=== PATIENT | female | born 1975 | race Caucasian/White ===

== ENCOUNTER 2024-12-06 18:17 | Observation (INO) | payer BC, SELFPAY ==
[2024-12-06 12:37] VITALS: BP 146/87
[2024-12-06 12:56] LABS: Hematocrit 36.2 % (37.0-47.0); Hemoglobin 11.7 g/dL (12.0-16.0); Mean Corp Hgb Conc. 32.3 g/dL (33.0-37.0); Mean Corpuscular Volume 84.6 fL (81.0-99.0); Nucleated Red Blood Cells % 0 %; Platelet Count 414 10^3/uL (130-400); Red Cell Dist. Width 15.9 % (11.5-14.5)
[2024-12-06 13:13] LABS: Urine Character Clear (Clear)
[2024-12-06 13:17] LABS: ALT (SGPT) 167 U/L (0-35); AST (SGOT) 97 U/L (14-36); Albumin 3.9 g/dl (3.5-5.0); Alkaline Phosphatase 153 U/L (38-126); Blood Urea Nitrogen 7 mg/dl (7-17); Calcium 9.0 mg/dl (8.4-10.2); Carbon Dioxide 22 mmol/L (22-30); Chloride 104 mmol/L (98-107); Glucose 133 mg/dl (70-99); Potassium 3.0 mmol/L (3.5-5.1); Sodium 134 mmol/L (135-145); Total Protein 7.6 g/dl (6.3-8.2); eGFR > 60.00
[2024-12-06 14:28] LABS: Urine Squamous Cell 16-20 /LPF (Few)
[2024-12-06 14:29] LABS: Urine Red Blood Cell 0-2 /HPF (0-2)
[2024-12-06 14:36] LABS: Lipase 60 U/L (23-300)
--- NOTE | 2024-12-06 16:14 | ED.GENMED ---
History of Present Illness
<Mathew Terry PA-C - Last Filed: 12/06/24 17:36>
General
Chief Complaint: Fever
Source: patient
Exam Limitations: none
Time Seen by Provider: 12/06/24 15:55
History of Present Illness
History of Present Illness:
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 This was started 3 days after receiving the shingles vaccine. She notes an occasional headache. She denies sore throat or neck pain. No
vomiting but decreased appetite. She denies abdominal pain. She notes urinary frequency but she did also notes that she has been drinking lots of water. She takes sertraline and omeprazole. No known tick exposure. No rash. Seen initially at
the urgent care was found to have a temperature there at 100.7 and an elevated white blood cell count and sent here to rule out sepsis.
Phy Exam
<Mathew Terry PA-C - Last Filed: 12/06/24 17:36>
Physical Exam
Physical Exam:
General: Well-appearing female no acute respiratory distress
HEENT normal cephalic atraumatic posterior pharynx patent neck is supple no adenopathy no erythema or exudate in the posterior pharynx. TMs normal
Heart: Tachycardic but regular
Lungs: Clear no wheeze
Abdomen is soft nontender negative Tucker sign no guarding or rebound
Extremities: No cyanosis or edema
Neurologic exam: No nuchal rigidity or no meningeal signs alert and oriented
Skin is warm no rash
Course
<Mathew Terry PA-C - Last Filed: 12/06/24 17:36>
Orders/Labs/Results
Orders:
Orders
12/06/24 12:36
Urinalysis Reflex To Culture Urgent
Date Specimen was Collected: 12/06/24
Time Specimen was Collected: 12:31
Urine Microscopic Reflex Cult Urgent
Urine Culture Urgent
NOHEMI Source: U
Specimen Description:
Date Specimen was Collected: 12/06/24
Time Specimen was Collected: 12:31
12/06/24 12:46
Complete Blood Count/With Diff Urgent
Comprehensive Metabolic Panel Urgent
Creatine Phosphokinase Urgent
Comment: ADD ON
Lactic Acid Urgent
Lipase Urgent
Comment: ADD ON
Lyme Progressive Urgent
Comment: ADD ON
Monotest Urgent
Comment: ADD ON
Blood Culture Urgent
NOHEMI Source: Blood/Venous
Specimen Description:
12/06/24 13:55
Add On- LAB Urgent
Tests Added?: lipase
12/06/24 16:12
0.9% Sodium Chloride 1000 ml [Nss] 1,000 ml IV BOLUS
Potassium Chloride [KCl] 40 meq PO NOW STA
12/06/24 16:13
Add On- LAB Urgent
Tests Added?: cpk, monotest, lyme progressive
CR Chest - 2 Views Urgent
Comment:
Reason For Exam: fever
12/06/24 16:28
Blood Culture Urgent
NOHEMI Source: Blood/Venous
Specimen Description:
12/06/24 17:21
Urinalysis Reflex To Culture Urgent
Date Specimen was Collected: 12/06/24
Time Specimen was Collected: 17:20
Urine Microscopic Reflex Cult Urgent
Urine Culture Urgent
NOHEMI Source: U
Specimen Description:
Date Specimen was Collected: 12/06/24
Time Specimen was Collected: 17:20
12/06/24 17:34
Add On- LAB Urgent
Tests Added?: hepaitis profile
12/06/24 18:00
US Abdomen Complete/Upper Urgent
Comment:
Reason For Exam: sirs, transamintis
12/06/24 18:01
Admit/Transfer Patient As Directed
Co-Sign Provider:
Level of Care: Observation services
Assign to:: Medical/Surgical
Physician / Group: yeison
Diagnosis: sirs, myalgias
12/06/24 18:02
Code Status As Directed
Resuscitation Status: Full Code
PRN Pain Medication Management As Directed
May give lesser potent ordered pain med per pt: Yes
preference::
Protocol:: Medication orders for pain may be administered in a
manner that supports deferring to patient preference
when the pt is:
- Requesting an ordered lesser potent pain medication.
Least to most potent pain medications are defined
as: acetaminophen < NSAID < tramadol < opioids
(morphine, oxycodone, hydromorphone).
- Requesting a lesser dose of the same medication IF
ORDERED.
- Requesting a less intrusive route of administration
if both routes are prescribed by the provider (PO <
IV).
12/06/24 18:15
COVID-19 Antigen Urgent
Source: Nasal Swab
Hepatitis A Antibody, Total Urgent
Hepatitis A IgM Antibody Urgent
Hepatitis B Core Ab, IgM Urgent
Hepatitis B Core Ab, Total Urgent
Hepatitis B Surface Antibody Urgent
Hepatitis B Surface Antigen Urgent
Hepatitis C Antibody Urgent
Influenza A+B Rapid Molecular Urgent
NOHEMI Source: Nasal Swab
Specimen Description:
Abnormal Lab Results
12/06/24 12/06/24 12/06/24
12:36 12:46 17:21
WBC 15.4 H 10^3/uL
(4.8-10.8)
Hgb 11.7 L g/dL
(12.0-16.0)
Hct 36.2 L %
(37.0-47.0)
MCHC 32.3 L g/dL
(33.0-37.0)
RDW 15.9 H %
(11.5-14.5)
Plt Count 414 H 10^3/uL
(130-400)
Abs Immat Gran (auto) 0.1 H 10^3/uL
(0-0.05)
Absolute Neuts (auto) 13.4 H 10^3/uL
(1.4-6.5)
Absolute Lymphs (auto) 1.0 L 10^3/uL
(1.2-3.4)
Absolute Monos (auto) 0.9 H 10^3/uL
(0.1-0.6)
Immature Gran % 0.6 H %
(0-0.5)
Neutrophils % 86.9 H %
(42.2-75.2)
Lymphocytes % 6.3 L %
(20.5-51.1)
Sodium 134 L mmol/L
(135-145)
Potassium 3.0 L mmol/L
(3.5-5.1)
Glucose 133 H mg/dl
(70-99)
AST 97 H U/L
(14-36)
ALT 167 H U/L
(0-35)
Alkaline Phosphatase 153 H U/L
(38-126)
Urine Ketones 1+ A
(Negative)
Ur Occult Blood Reflex 2+ A
(Negative)
Leukocyte Esterase Rfl 1+ A
(Negative)
Urine RBC 3-6 A /HPF
(0-2)
Urine WBC (Reflex) 26-30 A /HPF
(0-5)
Urine Bacteria (Reflex) Moderate A Many A
(Negative) (Negative)
Urine Albumin (Reflex) 1+ A 1+ A
(Neg - Trace) (Neg - Trace)
12/06/24 12:46
12/06/24 12:46
Vital Signs
Initial and Last Documented VS:
Initial Vital Signs
Temp Pulse Resp BP Pulse Ox
36.9 C 114 16 146/87 100
12/06/24 12:37 12/06/24 12:37 12/06/24 12:37 12/06/24 12:37 12/06/24 12:37
Last Documented Vital Signs
Temp Pulse Resp BP Pulse Ox
36.9 C 95 16 119/75 100
12/06/24 16:00 12/06/24 17:00 12/06/24 12:37 12/06/24 17:00 12/06/24 16:17
<Last López, DO - Last Filed: 12/06/24 18:32>
Orders/Labs/Results
Orders:
Orders
12/06/24 12:36
Urinalysis Reflex To Culture Urgent
Date Specimen was Collected: 12/06/24
Time Specimen was Collected: 12:31
Urine Microscopic Reflex Cult Urgent
Urine Culture Urgent
NOHEMI Source: U
Specimen Description:
Date Specimen was Collected: 12/06/24
Time Specimen was Collected: 12:31
12/06/24 12:46
Complete Blood Count/With Diff Urgent
Comprehensive Metabolic Panel Urgent
Creatine Phosphokinase Urgent
Comment: ADD ON
Lactic Acid Urgent
Lipase Urgent
Comment: ADD ON
Lyme Progressive Urgent
Comment: ADD ON
Monotest Urgent
Comment: ADD ON
Blood Culture Urgent
NOHEMI Source: Blood/Venous
Specimen Description:
12/06/24 13:55
Add On- LAB Urgent
Tests Added?: lipase
12/06/24 16:12
0.9% Sodium Chloride 1000 ml [Nss] 1,000 ml IV BOLUS
Potassium Chloride [KCl] 40 meq PO NOW STA
12/06/24 16:13
Add On- LAB Urgent
Tests Added?: cpk, monotest, lyme progressive
CR Chest - 2 Views Urgent
Comment:
Reason For Exam: fever
12/06/24 16:28
Blood Culture Urgent
NOHEMI Source: Blood/Venous
Specimen Description:
12/06/24 17:21
Urinalysis Reflex To Culture Urgent
Date Specimen was Collected: 12/06/24
Time Specimen was Collected: 17:20
Urine Microscopic Reflex Cult Urgent
Urine Culture Urgent
NOHEMI Source: U
Specimen Description:
Date Specimen was Collected: 12/06/24
Time Specimen was Collected: 17:20
12/06/24 17:34
Add On- LAB Urgent
Tests Added?: hepaitis profile
12/06/24 18:00
US Abdomen Complete/Upper Urgent
Comment:
Reason For Exam: sirs, transamintis
12/06/24 18:01
Admit/Transfer Patient As Directed
Co-Sign Provider:
Level of Care: Observation services
Assign to:: Medical/Surgical
Physician / Group: yeison
Diagnosis: sirs, myalgias
12/06/24 18:02
Code Status As Directed
Resuscitation Status: Full Code
PRN Pain Medication Management As Directed
May give lesser potent ordered pain med per pt: Yes
preference::
Protocol:: Medication orders for pain may be administered in a
manner that supports deferring to patient preference
when the pt is:
- Requesting an ordered lesser potent pain medication.
Least to most potent pain medications are defined
as: acetaminophen < NSAID < tramadol < opioids
(morphine, oxycodone, hydromorphone).
- Requesting a lesser dose of the same medication IF
ORDERED.
- Requesting a less intrusive route of administration
if both routes are prescribed by the provider (PO <
IV).
12/06/24 18:15
COVID-19 Antigen Urgent
Source: Nasal Swab
Hepatitis A Antibody, Total Urgent
Hepatitis A IgM Antibody Urgent
Hepatitis B Core Ab, IgM Urgent
Hepatitis B Core Ab, Total Urgent
Hepatitis B Surface Antibody Urgent
Hepatitis B Surface Antigen Urgent
Hepatitis C Antibody Urgent
Influenza A+B Rapid Molecular Urgent
NOHEMI Source: Nasal Swab
Specimen Description:
Abnormal Lab Results
12/06/24 12/06/24 12/06/24
12:36 12:46 17:21
WBC 15.4 H 10^3/uL
(4.8-10.8)
Hgb 11.7 L g/dL
(12.0-16.0)
Hct 36.2 L %
(37.0-47.0)
MCHC 32.3 L g/dL
(33.0-37.0)
RDW 15.9 H %
(11.5-14.5)
Plt Count 414 H 10^3/uL
(130-400)
Abs Immat Gran (auto) 0.1 H 10^3/uL
(0-0.05)
Absolute Neuts (auto) 13.4 H 10^3/uL
(1.4-6.5)
Absolute Lymphs (auto) 1.0 L 10^3/uL
(1.2-3.4)
Absolute Monos (auto) 0.9 H 10^3/uL
(0.1-0.6)
Immature Gran % 0.6 H %
(0-0.5)
Neutrophils % 86.9 H %
(42.2-75.2)
Lymphocytes % 6.3 L %
(20.5-51.1)
Sodium 134 L mmol/L
(135-145)
Potassium 3.0 L mmol/L
(3.5-5.1)
Glucose 133 H mg/dl
(70-99)
AST 97 H U/L
(14-36)
ALT 167 H U/L
(0-35)
Alkaline Phosphatase 153 H U/L
(38-126)
Urine Ketones 1+ A
(Negative)
Ur Occult Blood Reflex 2+ A
(Negative)
Leukocyte Esterase Rfl 1+ A
(Negative)
Urine RBC 3-6 A /HPF
(0-2)
Urine WBC (Reflex) 26-30 A /HPF
(0-5)
Urine Bacteria (Reflex) Moderate A Many A
(Negative) (Negative)
Urine Albumin (Reflex) 1+ A 1+ A
(Neg - Trace) (Neg - Trace)
12/06/24 12:46
12/06/24 12:46
Vital Signs
Initial and Last Documented VS:
Initial Vital Signs
Temp Pulse Resp BP Pulse Ox
36.9 C 114 16 146/87 100
12/06/24 12:37 12/06/24 12:37 12/06/24 12:37 12/06/24 12:37 12/06/24 12:37
Last Documented Vital Signs
Temp Pulse Resp BP Pulse Ox
36.9 C 95 16 119/75 100
12/06/24 16:00 12/06/24 17:00 12/06/24 12:37 12/06/24 17:00 12/06/24 16:17
<Mathew Terry PA-C - Last Filed: 12/06/24 17:36>
MDM/Problems Addressed
Differential Diagnosis Includes:
Patient presents for evaluation for possible sepsis given fever elevated white blood cell count and rigors. White blood cell count here is over 15,000. She is tachycardic. Labs reviewed otherwise which demonstrate potassium of 3.0 and a mild
transaminitis. Urinalysis with moderate bacteria and ketones likely contaminated specimen given 16-20 squamous cells. Blood cultures are pending will add COVID and flu test as well as Lyme and monotest. Chest x-ray pending. Fluids ordered.
<Mathew Terry PA-C - Last Filed: 12/06/24 17:36>
*Pulse Oximetry
SaO2: 100
Oxygen Mode of Delivery: Room air
Patient hypoxic: no
*Critical Care Note
Total Time (30-74mins, 75-104mins- exclusive of procedures): Not Applicable
<Mathew Terry PA-C - Last Filed: 12/06/24 17:36>
Update Note
Update Note:
Chest x-ray negative patient had COVID and flu test done at the urgent care today which were negative. Urinalysis without sign of infection. Added hepatitis profile Lyme test and monotest. Patient not feeling well overall and meets SIRS criteria
blood cultures are pending. Discussed with emergency room attending. Will admit for further evaluation
ED Attending Note
<Mathew Terry PA-C - Last Filed: 12/06/24 17:36>
-
Portions of this chart may have been created with voice recognition software.� Occasional wrong word or��sound alike� substitutions may have occurred due to the inherent limitations of voice recognition software.
<Last López DO - Last Filed: 12/06/24 18:32>
ED Attending Note
Patient seen and examined by attending physician: Yes
I performed the substantive portion of visit, reviewed & personally made and approve the management plan that is documented in note by myself or JESSE.: Yes
ED Attending Note:
I evaluated the patient at bedside. Leukocytosis is noted, she initially was tachycardic, meet SIRS criteria, transaminase elevation noted, urgent care urinalysis and 2 urinalyses here suggest contamination given the increased number of white
cells; the patient refused straight cath; chest x-ray shows no clear sign of pneumonia. Given the initial tachycardia, leukocytosis and general unwell feeling will keep in the hospital for further evaluation/borderline sepsis
Discharge Plan
Departure
Patient Disposition: Admit
Date of Disposition: 12/06/24
Time of Disposition: 17:35
Presentation/result/management discussed w/ accepting MD/DO: Hospitalist
Discharge Problem:
SIRS (systemic inflammatory response syndrome)
Interventions
Interventions:
*Risk Screen - Suicide Last Done: 12/06/24 12:30
*General Assessment Last Done: 12/06/24 16:27
*Neglect/Abuse Screening Last Done: 12/06/24 12:42
*ED- Fall Risk Assessment Last Done: 12/06/24 16:27
*ED COVID-19 Vaccine History Last Done: 12/06/24 16:27
*ED Influenza Vaccine History Last Done: 12/06/24 16:27
ED- Neurological Assessment Last Done: 12/06/24 16:28
ED-Skin Assessment Last Done: 12/06/24 16:28
[2024-12-06 16:22] VITALS: BP 129/75
[2024-12-06] MEDS: NSS 1000 IV (16:23)
[2024-12-06] MEDS: KCL 40 MEQ PO (16:23)
[2024-12-06 16:26] VITALS: BMI 28.8
[2024-12-06 17:00] VITALS: BP 119/75
[2024-12-06 17:28] LABS: Urine Character Clear (Clear)
[2024-12-06 17:39] LABS: Urine Squamous Cell 21-25 /LPF (Few)
[2024-12-06 17:40] LABS: Urine White Cell 26-30 /HPF (0-5)
[2024-12-06 18:00] VITALS: BP 117/74
--- NOTE | 2024-12-06 18:04 | HPS.HSE ---
Addendum entered and electronically signed by Aurelio Bejarano MD 12/06/24 23:20:
Started Ceftriaxone for UTI.
Original Note:
Family Physician
-
Family Physician: ANTONIA Mojica
Chief Complaint
-
fever body aches
History of Present Illness
49-year-old female past medical history of migraines, anxiety/depression, presenting with 6 days of rigors, fevers and chills and myalgias. This started 3 days after receiving the shingles vaccine which she received 9 days ago. She has occasional
headache. Denies sore throat or neck pain or runny nose. Denies vomiting but has decreased appetite. Denies diarrhea. Denies abdominal pain. She has urinary urgency. No tick exposure. No rash. She went to urgent care initially and had
temperature of 100.7 and elevated white blood cell count so she was sent here to rule out sepsis. She was tested for COVID and flu and was negative at urgent care. She has been having body aches and joint pains no particular joint.
No recent traveling history.
She had a bug bite on her right forearm around 6 days ago which has since resolved.
She does not smoke. She drinks alcohol occasionally.
Medical History
Past Medical History
Past Medical History: Reports Other (migraines, anxiety/depression)
Past Surgical History: Reports None
Social History
Tobacco: Non-smoker
Alcohol: Occasional
Drug: None
Family History
Family History: Not pertinent
Allergies / Home Medications
Allergies reflects when Allergies were last updated in [facility].
Home Medications with original date entered in [facility]
Allergy/Medication List:
Allergies
Allergy/AdvReac Type Severity Reaction Status Date / Time
No Known Allergies Allergy Unverified 12/06/24 12:42
Home Medications
norethindrone (contraceptive) 0.35 mg tablet 0.35 mg PO DAILY 12/06/24
omeprazole 20 mg capsule,delayed release 20 mg PO DAILY 12/06/24
sertraline 50 mg tablet 50 mg PO DAILY 12/06/24
Review of Systems
-
History Source: Patient
A 12 point ROS was completed and negative except as noted: Yes
Constitutional: Reports No Symptoms
EENT: Reports No Symptoms
Respiratory: Reports No Symptoms
Cardiac: Reports No Symptoms
Abdomen/GI: Reports No Symptoms
: Reports No Symptoms
Musculoskeletal: Reports See HPI
Skin: Reports No Symptoms
Neurological: Reports No Symptoms
Endocrine: Reports No Symptoms
Hematologic/Lymphatic: Reports No Symptoms
Psych: Reports No Symptoms
Physical Exam
Vital Signs
Vital Signs
Temp Pulse Resp BP Pulse Ox
98.4 F 95 16 119/75 100
12/06/24 16:00 12/06/24 17:00 12/06/24 12:37 12/06/24 17:00 12/06/24 16:17
Physical Exam
General: Well Developed, Well Nourished and No Apparent Distress
HEENT: NormoCephalic, Moist mucous membranes and Atraumatic
Respiratory: Clear
Cardiac: S1/S2 and Regular Rhythm; No Murmur or Rub
GI: Soft, Non Tender, Non Distended and Normal Bowel Sounds; No Organomegaly
Rectal: Deferred by Provider
Musculoskeletal: No Clubbing, No Cyanosis and No Edema
Skin: No Rash
Neuro: Nonfocal/grossly intact
Laboratory Results
-
12/06/24 12:46
12/06/24 12:46
Laboratory Results
Lactic Acid 0.7 mmol/L (0.7-2.0) 12/06/24 12:46
Total Bilirubin 1.0 mg/dl (0.2-1.3) 12/06/24 12:46
AST 97 U/L (14-36) H 12/06/24 12:46
ALT 167 U/L (0-35) H 12/06/24 12:46
Alkaline Phosphatase 153 U/L (38-126) H 12/06/24 12:46
Lipase 60 U/L (23-300) 12/06/24 12:46
Data Reviewed
-
Lab Data: Labs Reviewed by me
Old Records: Reviewed
Impression/Plan
-
IMPRESSION:
PLAN:
# SIRS (tachycardia, leukocytosis, fever at home) unclear etiology possible viral infection versus UTI given urinary urgency
- First urinalysis unremarkable, second urinalysis shows 26-30 WBC, +1 leukocyte esterase but presentation still not convincing for UTI
- Blood cultures pending
- Chest x-ray shows no evidence of pneumonia, mild biapical pleural thickening
- Lyme's test pending
- Sharp negative
- Check COVID and influenza here
- IV fluids given
- Tylenol
-Hold abx for now
# Transaminitis probably viral
- Continue to monitor
- No abdominal symptoms
- Check abdominal ultrasound
- Hepatitis serologies pending
# Hypokalemia
- Replete potassium
Anemia presumably chronic
- Hemoglobin 11.7
History of migraine
Anxiety/depression
- Continue sertraline
GERD
- Continue omeprazole
Full code
DVT prophylaxis�heparin
Regular diet
--- NOTE | 2024-12-06 18:18 | CM ---
CM Reviewed chart and met with pt at bedside. OBS form signed and left a bedside at 18:15
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 Lives with
no DME
PCP Dr. Gretchen Juan
RX plan yes
Pharmacy [facility] in [place]
no hx of VN nor SNF
DCP is to go back home
CM will continue to follow up for dcp needs
[2024-12-06 19:06] LABS: COVID-19 Antigen Negative (Negative)
[2024-12-06 19:57] VITALS: BMI 28.2
[2024-12-06 20:07] VITALS: BP 169/96
[2024-12-06] MEDS: MOTRIN 400 MG PO (20:36)
[2024-12-06] MEDS: HEPARIN 5000 UNITS SC (20:37)
[2024-12-06 23:03] VITALS: BP 130/75
[2024-12-07] MEDS: ROCEPHIN 1000 MG IV
[2024-12-07] MEDS: STERILE WATER FOR INJECTION 10 ML IV (00:01)
--- NOTE | 2024-12-07 02:32 | DOWNTIME ---
There was a [employer] Downtime on 12/07/2024 from 0100 to 12/07/2024 at 0215. Downtime documentation of patient's care, including medication administrations, has been reconciled in the electronic record per guidelines. Refer to the
patient's paper chart under the miscellaneous tab to see printed paper medication records and downtime forms.
[2024-12-07] MEDS: TYLENOL 650 MG PO ×2 (04:52→15:08)
[2024-12-07 07:25] VITALS: BP 142/83
[2024-12-07 08:15] LABS: Hematocrit 33.8 % (37.0-47.0); Hemoglobin 10.8 g/dL (12.0-16.0); Mean Corp Hgb Conc. 32.0 g/dL (33.0-37.0); Mean Corpuscular Volume 84.3 fL (81.0-99.0); Nucleated Red Blood Cells % 0 %; Platelet Count 429 10^3/uL (130-400); Red Cell Dist. Width 16.0 % (11.5-14.5)
[2024-12-07] MEDS: HEPARIN SC (09:29)
[2024-12-07] MEDS: PROTONIX 40 MG PO (09:30)
[2024-12-07 09:32] LABS: ALT (SGPT) 217 U/L (0-35); AST (SGOT) 179 U/L (14-36); Albumin 3.4 g/dl (3.5-5.0); Alkaline Phosphatase 203 U/L (38-126); Blood Urea Nitrogen 6 mg/dl (7-17); Calcium 8.6 mg/dl (8.4-10.2); Carbon Dioxide 21 mmol/L (22-30); Chloride 109 mmol/L (98-107); Estimated Creatinine Clearance 70 ml/min; Glucose 113 mg/dl (70-99); Potassium 3.8 mmol/L (3.5-5.1); Sodium 140 mmol/L (135-145); Total Protein 6.7 g/dl (6.3-8.2); eGFR > 60.00
[2024-12-07 09:57] LABS: Urine Character Cloudy (Clear)
[2024-12-07 10:16] LABS: Urine Red Blood Cell 70-80 /HPF (0-2); Urine Squamous Cell 0-2 /LPF (Few); Urine White Cell 16-20 /HPF (0-5)
--- NOTE | 2024-12-07 11:07 | W.PN.HOSP.TC ---
Addendum entered and electronically signed by Marcus Darling MD 12/07/24 16:49:
Seen and examined the patient. Agree with plan set forth by the resident except changes in my documentation.
49-year-old with fever and body aches started 3 days after receiving shingles vaccine which was 9 days ago. Also has urinary urgency, mild pain at the right side lateral area not posterior or anterior. Denies any rashes, nausea vomiting or
diarrhea abdominal pain, headaches, cough or shortness of breath. No chest pain. No pleurisy
On examination awake alert oriented
Cardiovascular system S1-S2 appreciated
Chest clear to auscultation
Abdomen soft and nontender, no CVA angle tenderness, no rashes
Mild discomfort on the lateral aspect just below the floating ribs but no guarding or rigidity
No pedal edema
No calf tenderness no rashes
# Sepsis likely secondary to UTI
Lactic acidosis
COVID serologies negative monoscreen negative, influenza negative
Hepatitis panel pending
Blood cultures pending, urine cultures with E. coli
Patient has pain in the right lateral area therefore get CT scan of abdomen and pelvis with steroid prep because of contrast allergy
# Transaminitis
Check hepatitis serologies
Ultrasound of the abdomen-no evidence of cholelithiasis, acute cholecystitis or biliary obstruction. No evidence of ascites
Check CT scan of the abdomen and pelvis
If LFTs are not trending down we will consult GI tomorrow
# UTI
Treat with ceftriaxone changed to 2 g IV daily
Await culture
# Hypokalemia-replace potassium
# Mild hyponatremia-resolved
# Thrombocytosis
# Chronic anemia
# Anxiety-continue sertraline
# History of migraine
# GERD-continue PPI
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
# DVT prophylaxis-Lovenox
# Full code
Discussed with at bedside
Part of this note was created using voice recognition system. Occasional wrong word or��sound alike� substitutions may have inadvertently occurred due to the inherent limitations of voice recognition software. If noted kindly bring it to my
attention for correction.
Original Note:
Today's Communication/Plan
-
Continue IV Abx. CT Abd/Pelv w/ IV to evaluate for pyelo/stones.
Assessment / Plan
Assessment / Plan
49F w/ PMHx migraines, GERD, MDD/OBIE, and recurrent UTIs who is presenting with 6 days of fevers and chills with associated rigors and was noted to be febrile, with leukocytosis, tachypneic and tachycardic, meeting criteria for SIRS with UA showing
a urinary tract infection as the potential source of infection.
ED COURSE
Tachypneic, tachycardic female, Temp 100.7 max
WBC 15.4, Hb 11.7, K 3.0, transaminitis with elevated alk-phos
Positive UA, BCx, UCx sent
Patient admitted for IV Abx w/ IV Ceftrixone 1g daily
1. Sepsis 2/2 Urinary Tract Infection
- WBC 15.4, HR 114, Temp 100.7 on arrival
- Urinalysis (and repeat) signs of UTI
- Pending Ucx, BCx x 2
- Continue Ceftriaxone 1g IV daily x 7 days (eventual transition to PO, consider longer course if pyelo on CT)
- WBC and temperature trends
- Monitor hemodynamics
- CT Abd/Pelv w/ IV after steroid prep to evaluate for pyelo in the setting of R flank pain
- CT Abd/Pelv as above, to evaluate for stone
2. Normocytic Anemia
- Hb 11.7 on arrival, 10.8 this AM with no signs of blood loss
- Decrease this AM likely due to dilution
- Will order iron studies for the AM
3. Transaminitis
- Mild transaminitis with elevated alk-phos
- No GI symptoms
- Potentially secondary to infection
- Rule out viral hepatitis, serologies pending
4. Hypokalemia (Resolved)
- S/p 40 mEQ PO repletion in ED
- 3.8 this AM, continue to monitor daily BMP
- Replete for K < 4
5. GERD
- Pantoprazole 40mg PO daily
6. OBIE/MDD
- Continue Sertraline 50 mg PO qhs
DVT PPx: Enoxaparin
Diet: Regular
Code: FULL CODE
Anticipated Discharge: 24 - 48 hours
Subjective/Interval History
-
Date of Service: December 07, 2024
Patient seen and examined while sitting up in chair. Appears a little uncomfortable. Since this is my first time seeing the patient, performed a full history and physical examination.
Briefly, the patient is a 49F w/ PMHx migraines, GERD, MDD/OBIE, and recurrent UTIs who is presenting with 6 days of fevers and chills with associated rigors. Patient states that she is checking her temperature, however her daughter does not work.
Denies a pattern regarding timing of fevers. Patient has not had to take Tylenol, however did not help. Patient endorses receiving the shingles vaccine 9 days ago. She continued to be in her usual state of health for the next 3 days, however 6
days ago, started to experience fevers, chills, and rigors. Associated with the symptoms as well as a decrease in appetite, urinary urgency, body aches, and headaches. Patient endorses going to the urgent care center where her temperature was
100.7, and she was noted to have leukocytosis on labs. She otherwise denies respiratory symptoms, cough, chest pain, abdominal pain, nausea, vomiting, diarrhea, dysuria, burning on urination.
Objective Data
-
Labs:
Laboratory Results
12/07/24
07:47
WBC 20.9 H
Hgb 10.8 L
Hct 33.8 L
Plt Count 429 H
Sodium 140
Potassium 3.8 D
Chloride 109 H
Carbon Dioxide 21 L
BUN 6 L
Creatinine 0.7
Glucose 113 H
Calcium 8.6
Total Bilirubin 0.9
AST 179 H
ALT 217 H
Alkaline Phosphatase 203 H
Vital Signs:
Vital Signs
Temp Pulse Resp BP Pulse Ox
98.0 F 117 20 142/83 97
12/07/24 07:25 12/07/24 07:25 12/07/24 07:25 12/07/24 07:25 12/07/24 07:25
I&O
12/06/24 12/07/24 12/08/24
06:59 06:59 06:59
Intake Total 960 / 960
Balance 960 / 960
Review of Systems
-
History Source: Patient
All other systems: Reviewed and negative
Physical Exam
-
General: Well Developed, Well Nourished and Other (Appears mildly uncomfortable)
HEENT: Normocephalic, Atraumatic and Moist Mucous Membranes
Respiratory: Clear to Auscultation and Other (appears mildly dyspneic); Negative Wheezes, Rales, Rhonchi or Crackles
Cardiac: Regular Rhythm and S1/S2
GI: Soft, Nontender, Nondistended and Normal Bowel Sounds
Genito-urinary: Costovertebral Angle Tend (Right)
Musculoskeletal: No Clubbing, No Cyanosis and No Edema
Skin: Warm
Neuro: Awake, Alert and Oriented
Psych: Calm
Data Reviewed
-
Diagnostic Radiology: Image personally visualized and interpreted, Report Reviewed by me and Discussed with Patient
Ultrasound: Report Reviewed by me and Discussed with Patient
Labs: Labs Reviewed by me and Discussed with Patient
[2024-12-07] MEDS: MOTRIN 400 MG PO ×2 (11:11→20:41)
[2024-12-07 11:31] LABS: C-Reactive Protein > 270.00 mg/L (0.0-10.00)
[2024-12-07 12:23] LABS: Hepatitis C Antibody Negative (Negative)
[2024-12-07 15:36] VITALS: BP 137/76
[2024-12-07] MEDS: ROCEPHIN 2000 MG IV (18:28)
[2024-12-07] MEDS: STERILE WATER FOR INJECTION 20 ML IV (18:29)
[2024-12-07] MEDS: LOVENOX SC (18:42)
[2024-12-07] MEDS: MEDROL 32 MG PO (20:39)
[2024-12-07] MEDS: ZOLOFT 50 MG PO ×2 (21:55)
[2024-12-07] MEDS: MELATONIN 5 MG PO (21:55)
[2024-12-07 22:50] VITALS: BP 133/81
[2024-12-08] MEDS: MEDROL 32 MG PO (05:54)
[2024-12-08] MEDS: BENADRYL 50 MG PO (07:02)
[2024-12-08 07:50] VITALS: BP 142/85
[2024-12-08 08:10] LABS: ALT (SGPT) 203 U/L (0-35); AST (SGOT) 93 U/L (14-36); Albumin 3.5 g/dl (3.5-5.0); Alkaline Phosphatase 208 U/L (38-126); Blood Urea Nitrogen 11 mg/dl (7-17); Calcium 9.0 mg/dl (8.4-10.2); Carbon Dioxide 20 mmol/L (22-30); Chloride 110 mmol/L (98-107); Estimated Creatinine Clearance 82 ml/min; Glucose 147 mg/dl (70-99); Iron 44 ug/dl (37-170); Potassium 4.2 mmol/L (3.5-5.1); Sodium 142 mmol/L (135-145); Total Protein 7.0 g/dl (6.3-8.2); eGFR > 60.00
[2024-12-08 08:20] LABS: Total Iron Binding Capacity 289 ug/dl (265-497)
[2024-12-08 08:38] LABS: Hematocrit 34.4 % (37.0-47.0); Hemoglobin 11.0 g/dL (12.0-16.0); Mean Corp Hgb Conc. 32.0 g/dL (33.0-37.0); Mean Corpuscular Volume 83.9 fL (81.0-99.0); Red Cell Dist. Width 16.0 % (11.5-14.5)
--- NOTE | 2024-12-08 09:31 | W.PN.HOSP.TC ---
Addendum entered and electronically signed by Marcus Darling MD 12/08/24 16:38:
Seen and examined the patient. Agree with plan set forth by the resident except changes in my documentation.
49-year-old with fever and body aches started 3 days after receiving shingles vaccine which was 9 days ago. Also has urinary urgency, mild pain at the right side lateral area not posterior or anterior. Denies any rashes, nausea vomiting or
diarrhea abdominal pain, headaches, cough or shortness of breath. No chest pain. No pleurisy
On examination awake alert oriented
Cardiovascular system S1-S2 appreciated
Chest clear to auscultation
Abdomen soft and nontender, no CVA angle tenderness, no rashes
CT abdomen/pelvis-right pyelonephritis in the appropriate clinical context. Extensive patchy peripheral hypoattenuation throughout the right kidney bowel probable superimposed small simple cyst. Cannot rule out complex cystic lesion
# Sepsis likely secondary to UTI, likely pyelonephritis
No Lactic acidosis
COVID serologies negative monoscreen negative, influenza negative
Hepatitis panel pending
Blood cultures pending, urine cultures with E. coli
Patient has pain in the right lateral area therefore get CT scan of abdomen and pelvis with steroid prep because of contrast allergy
# Transaminitis
Check hepatitis serologies
Ultrasound of the abdomen-no evidence of cholelithiasis, acute cholecystitis or biliary obstruction. No evidence of ascites
CT scan of the abdomen and pelvis-liver and gallbladder normal
If LFTs are not trending down we will consult GI tomorrow
# Hypokalemia-replaced
# Mild hyponatremia-resolved
# Thrombocytosis-Follow
# Chronic anemia
# Anxiety-continue sertraline
# History of migraine
# GERD-continue PPI
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
# DVT prophylaxis-Lovenox
# Full code
D/W RN
Part of this note was created using voice recognition system. Occasional wrong word or��sound alike� substitutions may have inadvertently occurred due to the inherent limitations of voice recognition software. If noted kindly bring it to my
attention for correction.
Original Note:
Today's Communication/Plan
-
Continue antibiotics. CT positive for pyelo. Evaluate causes of very elevated CRP.
Assessment / Plan
Assessment / Plan
49F w/ PMHx migraines, GERD, MDD/OBIE, and recurrent UTIs who presented with 6 days of fevers and chills with associated rigors and was noted to be febrile, with leukocytosis, tachypneic and tachycardic, meeting criteria for SIRS with UA showing a
urinary tract infection as the potential source of infection.
12/08: feeling better this AM, no pain, no fevers, WBC downtrend, UCx positive for E. Coli, CT Scan showing
ED COURSE
Tachypneic, tachycardic female, Temp 100.7 max
WBC 15.4, Hb 11.7, K 3.0, transaminitis with elevated alk-phos
Positive UA, BCx, UCx sent
Patient admitted for IV Abx w/ IV Ceftrixone 1g daily
1. Sepsis 2/2 Urinary Tract Infection Complicated by Pyelonephritis
- WBC 15.4, HR 114, Temp 100.7 on arrival
- WBC downtrending, HR 91, afebrile overnight
- Urinalysis (and repeat) signs of UTI
- BCx negative X2
- UCx shows E. coli (awaiting sensitivities)
- CT Abd/Pelv (12/08): Finding suggestive of right pyelonephritis, ?Superimposed simple cysts?, Possible complex cystic lesion in right upper pole
- Continue Ceftriaxone 2g IV daily x 7 days (eventual transition to PO)
- WBC and temperature trends
- Monitor hemodynamics
2. Normocytic Anemia
- Hb 11.7 on arrival, stable at around 11
- Iron studies pending:
3. Transaminitis
- Mild transaminitis with elevated alk-phos
- No GI symptoms
- Potentially secondary to infection
- Rule out viral hepatitis, serologies pending
- Improvement this AM
4. Hypokalemia (Resolved)
- S/p 40 mEQ PO repletion in ED
- 4.2 this AM, continue to monitor daily BMP
- Replete for K < 4
5. GERD
- Pantoprazole 40mg PO daily
6. OBIE/MDD
- Continue Sertraline 50 mg PO qhs
7. Radiographic Cystic Lesions on right kidney
- Possibly reactive to pyelonephritis
- Complex cystic lesion on the upper pole of kidney kidney; outpatient evaluation by urology
8. Thrombocytosis
- Likely reactive
- Continue to monitor CBC
9. Elevated CRP
- Expected in the setting of inflammation/infection, but elevated beyond test reference range
- Repeat CRP in AM
DVT PPx: Enoxaparin
Diet: Regular
Code: FULL CODE
Anticipated Discharge: Within 24 hours
Subjective/Interval History
-
Date of Service: December 08, 2024
Patient seen examined while sitting up comfortably in chair, just having eaten breakfast. Patient states that she is overall feeling better today. She denies any abdominal pain, body aches, fevers. She otherwise denies acute urinary symptoms
including burning with urination, urinary frequency, suprapubic pressure. Patient went for CAT scan this morning.
Objective Data
-
Labs:
Laboratory Results
12/08/24
07:21
WBC 14.1 H
Hgb 11.0 L
Hct 34.4 L
Plt Count Pending
Sodium 142
Potassium 4.2
Chloride 110 H
Carbon Dioxide 20 L
BUN 11
Creatinine 0.5 L
Glucose 147 H
Calcium 9.0
Total Bilirubin 0.5
AST 93 H
ALT 203 H
Alkaline Phosphatase 208 H
Vital Signs:
Vital Signs
Temp Pulse Resp BP Pulse Ox
97.7 F 91 18 142/85 97
12/08/24 07:50 12/08/24 07:50 12/08/24 07:50 12/08/24 07:50 12/08/24 07:50
I&O
12/07/24 12/08/24 12/09/24
06:59 06:59 06:59
Intake Total 960 / 960 2219
Balance 960 / 960 2219
Review of Systems
-
History Source: Patient
All other systems: Reviewed and negative
Physical Exam
-
General: Well Developed, Well Nourished, Comfortable and Conversant; Negative Fever, Chills or Sweats
HEENT: Normocephalic, Atraumatic and Moist Mucous Membranes
Respiratory: Clear to Auscultation and Non Labored Respirations (Breathing appears less labored than yesterday.); Negative Wheezes, Rales, Rhonchi or Crackles
Cardiac: Regular Rhythm and S1/S2; Negative Tachycardic
GI: Soft, Nontender and Nondistended
Genito-urinary: No Costovertebral Tender
Musculoskeletal: No Clubbing, No Cyanosis and No Edema
Skin: Warm
Neuro: Awake, Alert and Oriented
Psych: Calm
Data Reviewed
-
CT Scan: Image personally visualized and interpreted, Report Reviewed by me and Discussed with Patient
Labs: Labs Reviewed by me and Discussed with Patient
[2024-12-08] MEDS: PROTONIX 40 MG PO (10:24)
[2024-12-08 10:30] LABS: Nucleated Red Blood Cells % 0 %; Platelet Count 540 10^3/uL (130-400)
[2024-12-08 10:38] LABS: Ferritin 205.0 ng/ml (11.1-264.0)
[2024-12-08 15:05] LABS: Lyme Antibody Screen, EIA Negative (Negative)
[2024-12-08 15:34] VITALS: BP 136/87
--- NOTE | 2024-12-08 16:31 | CM ---
CM following for discharge planning. Pt will need 7 days IV abx due to pyelonephritis and elevated CRP.
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
Plan: Discharge to home with when medically cleared.
[2024-12-08] MEDS: LOVENOX 40 MG SC (16:46)
[2024-12-08] MEDS: STERILE WATER FOR INJECTION 20 ML IV (16:46)
[2024-12-08] MEDS: ROCEPHIN 2000 MG IV (16:46)
[2024-12-08 19:14] LABS: Hepatitis B Surface Antigen Negative (Negative)
[2024-12-08 19:32] LABS: Hepatitis A Antibody, Total Negative (Negative)
[2024-12-08] MEDS: ZOLOFT 50 MG PO (21:22)
[2024-12-08 23:04] VITALS: BP 134/86
[2024-12-09] MEDS: MELATONIN 5 MG PO ×2 (00:53→22:00)
[2024-12-09 07:21] LABS: Hematocrit 28.0 % (37.0-47.0); Hemoglobin 9.4 g/dL (12.0-16.0); Mean Corp Hgb Conc. 33.6 g/dL (33.0-37.0); Mean Corpuscular Volume 81.4 fL (81.0-99.0); Nucleated Red Blood Cells % 0 %; Platelet Count 506 10^3/uL (130-400); Red Cell Dist. Width 15.9 % (11.5-14.5)
[2024-12-09 07:32] LABS: ALT (SGPT) 244 U/L (0-35); AST (SGOT) 156 U/L (14-36); Albumin 3.2 g/dl (3.5-5.0); Alkaline Phosphatase 168 U/L (38-126); Blood Urea Nitrogen 22 mg/dl (7-17); Calcium 8.7 mg/dl (8.4-10.2); Carbon Dioxide 23 mmol/L (22-30); Chloride 111 mmol/L (98-107); Estimated Creatinine Clearance 61 ml/min; Glucose 107 mg/dl (70-99); Potassium 4.0 mmol/L (3.5-5.1); Sodium 141 mmol/L (135-145); Total Protein 6.3 g/dl (6.3-8.2); eGFR > 60.00
[2024-12-09 07:54] LABS: C-Reactive Protein 181.50 mg/L (0.0-10.00)
[2024-12-09 07:57] VITALS: BP 129/82
--- NOTE | 2024-12-09 08:14 | W.PN.HOSP.TC ---
Addendum entered and electronically signed by Marcus Darling MD 12/09/24 15:21:
Seen and examined the patient. Agree with plan set forth by the resident except changes in my documentation.
49-year-old with fever and body aches started 3 days after receiving shingles vaccine which was 9 days ago. Also has urinary urgency, mild pain at the right side lateral area not posterior or anterior. Denies any rashes, nausea vomiting or
diarrhea abdominal pain, headaches, cough or shortness of breath. No chest pain. No pleurisy
On examination awake alert oriented
Cardiovascular system S1-S2 appreciated
Chest clear to auscultation
Abdomen soft and nontender, no CVA angle tenderness, no rashes
CT abdomen/pelvis-right pyelonephritis in the appropriate clinical context. Extensive patchy peripheral hypoattenuation throughout the right kidney bowel probable superimposed small simple cyst. Cannot rule out complex cystic lesion
# Sepsis likely secondary to UTI, likely pyelonephritis
No Lactic acidosis
COVID serologies negative monoscreen negative, influenza negative
Hepatitis panel negative
Blood cultures negative, urine cultures with E. coli
CT scan of the abdomen pelvis noted
Leukocytosis likely secondary to steroids got for the Allergy dye prep
# Transaminitis
Hepatitis serologies negative
Ultrasound of the abdomen-no evidence of cholelithiasis, acute cholecystitis or biliary obstruction. No evidence of ascites
CT scan of the abdomen and pelvis-liver and gallbladder normal
LFTs are not improving
Autoimmune hepatitis serologies added
# Hypokalemia-replaced
# Mild hyponatremia-resolved
# Thrombocytosis-Follow
# Chronic anemia
# Anxiety-continue sertraline
# History of migraine
# GERD-continue PPI
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
# DVT prophylaxis-Lovenox
# Full code
D/W RN
Part of this note was created using voice recognition system. Occasional wrong word or��sound alike� substitutions may have inadvertently occurred due to the inherent limitations of voice recognition software. If noted kindly bring it to my
attention for correction.
Original Note:
Today's Communication/Plan
-
GI consult. ID consult. Repeat afternoon labs. Autoimmune panel.
Assessment / Plan
Assessment / Plan
49F w/ PMHx migraines, GERD, MDD/OBIE, and recurrent UTIs who presented with 6 days of fevers and chills with associated rigors and was noted to be febrile, with leukocytosis, tachypneic and tachycardic, meeting criteria for SIRS with UA showing a
urinary tract infection as the potential source of infection.
ED COURSE
Tachypneic, tachycardic female, Temp 100.7 max
WBC 15.4, Hb 11.7, K 3.0, transaminitis with elevated alk-phos
Positive UA, BCx, UCx sent
Patient admitted for IV Abx w/ IV Ceftrixone 1g daily
12/08: feeling better this AM, no pain, no fevers, WBC downtrend, UCx positive for E. Coli, CT Scan showing
12/09: feeling okay this AM, WBC back up to 21K, UCx sensitivities resulted, tranaminases continued uptrend
1. Sepsis 2/2 Urinary Tract Infection Complicated by Pyelonephritis
- WBC 15.4, HR 114, Temp 100.7 on arrival
- WBC back up to 21.4 K after initial improvement, other VSS, afebrile overnight
- Urinalysis (and repeat) signs of UTI
- BCx negative X2
- UCx shows E. coli
- Sensitivity to cephalosporins
- CT Abd/Pelv (12/08): Finding suggestive of right pyelonephritis, ?Superimposed simple cysts?, Possible complex cystic lesion in right upper pole
- Continue Ceftriaxone 2g IV daily x 7 days (eventual transition to PO), will consult ID
- WBC and temperature trends
- Monitor hemodynamics
2. Normocytic Anemia
- Hb 11.7 on arrival, 9.7 this AM; decrease could be dilutional, no signs of bleed
- Iron studies: no signs of JIMENA
- Continue to monitor H/H
3. Transaminitis
- Continued elevation of LFTs
- No GI symptoms
- Potentially secondary to infection, but persist despite treatment
- Denies personal or family history of autoimmune or liver disease
- Viral Hepatitis ruled out, will order autoimmune labs
- GI consult today
4. Hypokalemia (Resolved)
- S/p 40 mEQ PO repletion in ED
- 4.0 this AM, continue to monitor daily BMP
- Replete for K < 4
5. GERD
- Pantoprazole 40mg PO daily
6. OBIE/MDD
- Continue Sertraline 50 mg PO qhs
7. Radiographic Cystic Lesions on right kidney
- Possibly reactive to pyelonephritis
- Complex cystic lesion on the upper pole of kidney kidney; outpatient evaluation by urology
8. Thrombocytosis
- Likely reactive
- Continue to monitor CBC
9. Elevated CRP
- Expected in the setting of inflammation/infection, but elevated beyond test reference range
- Repeat this AM was improved, but still elevated. Given improvement this is more likely infection mediated
- Still, in setting of LFTs will also order autoimmune hep labs and ANKIT as above
DVT PPx: Enoxaparin
Diet: Regular
Code: FULL CODE
Anticipated Discharge: 24 - 48 hours
Subjective/Interval History
-
Date of Service: December 09, 2024
Patient seen and examined while resting comfortably in chair. Patient endorses feeling well.
States that she has some residual pain in the right side of the abdomen that is described as a dull ache, as well as some urinary urgency. Otherwise feels much improved.
Denies hematuria, frequency, changes in urine. Denies fever/chills.
States that she works at [employer], and given recent laboratory findings, would like to consider transfer to [employer] after this afternoons tests and consults. She will reach out to try to find accepting physician.
Objective Data
-
Labs:
Laboratory Results
12/09/24
06:59
WBC 21.4 H
Hgb 9.4 L
Hct 28.0 L
Plt Count 506 H
Sodium 141
Potassium 4.0
Chloride 111 H
Carbon Dioxide 23
BUN 22 H
Creatinine 0.8
Glucose 107 H
Calcium 8.7
Total Bilirubin 0.3
AST 156 H
ALT 244 H
Alkaline Phosphatase 168 H
Vital Signs:
Vital Signs
Temp Pulse Resp BP Pulse Ox
97.8 F 86 18 129/82 95
12/09/24 07:57 12/09/24 07:57 12/09/24 07:57 12/09/24 07:57 12/09/24 07:57
I&O
12/08/24 12/09/24 12/10/24
06:59 06:59 06:59
Intake Total 2220 / 2220 1200 / 1200
Balance 2220 / 2220 1200 / 1200
Review of Systems
-
History Source: Patient
All other systems: Reviewed and negative
Physical Exam
-
General: Well Developed, Well Nourished, No Apparent Distress and Comfortable
HEENT: Normocephalic, Atraumatic, Moist Mucous Membranes and Anicteric
Respiratory: Clear to Auscultation and Non Labored Respirations; Negative Wheezes, Rales, Rhonchi or Crackles
Cardiac: Regular Rhythm and S1/S2; Negative Murmur
GI: Soft, Nontender and Nondistended
Genito-urinary: No Costovertebral Tender
Musculoskeletal: No Clubbing, No Cyanosis and No Edema
Skin: Warm and Dry
Neuro: Awake, Alert and Oriented
Psych: Calm
Data Reviewed
-
CT Scan: Image personally visualized and interpreted, Report Reviewed by me and Discussed with Patient
Labs: Labs Reviewed by me and Discussed with Patient
[2024-12-09] MEDS: PROTONIX 40 MG PO (08:18)
--- NOTE | 2024-12-09 12:49 | CON.GI ---
Addendum entered and electronically signed by Jace Hand MD 12/09/24 15:18:
I saw and examined the patient.
The [employer]EL[employer] or PA's note was reviewed and I agree with the note.
Comment: 49yo female presents with fever, chills and back pain last week. She had Shingrix vaccine three days prior. CT shows pyelonephritis. LFTs elevated AST 156, ALT 244, has been trending up since admission. Started on ceftriaxone. Liver
normal on CT, US including patent portal, hepatic v. Denies new meds. Drinks socially. Had normal LFTs as outpt in May. No prior liver disease known
REC:
Likely LFT elevation due to infxn/pyelo and abx
Will trend LFTs
Hep B/C, monoscreen negative.
Check autoimmune labs. Rare reports of AIH due to Shingrix vaccine
Original Note:
Consultation
-
Date/Time Consultation Requested: 12/09/24 81
Date/Time Consultation Performed: 12/09/24 1145
Requesting Provider: Dr. Darling
Performing Provider: Dr. Hand/ANTONIA Srinivasan
Reason for Consultation: elevated LFTs
Medical History
Chief Complaint / HPI
Chief Complaint: fever, body aches
History of Present Illness:
49-year-old female with past medical histories of migraines, GERD, depression presents to the emergency room with fevers, chills, body aches, headache, malaise and poor appetite associated with low back pain since 11/30/2024. Asked to evaluate for
elevated LFTs. The patient states that she was in good health. No prior history of LFT elevation. She does not smoke. She drinks 2-3 alcoholic beverages a week. Her allergies are IV contrast. Only medications are Prilosec and Zoloft. She did
receive the Shingrix vaccine on 11/27/2024 in the left deltoid. She also did have a bug bite in her right forearm (she did not see the bug) states this was itchy and she applied hydrocortisone and Neosporin to the area with resolution of symptoms.
She states that on the evening of 11/30/2024 she could not sleep. She started having aches and pains with headache. She took ibuprofen for this and felt unwell while at work on 12/01/2024. She had progressive symptoms that lasted. She had
decreased appetite. [facility] There she was found to be febrile at 100.7 degrees. She was negative for COVID and flu. She was having low back pain. She was referred to the emergency room for further evaluation.
She was found to have a WBC count of 15.4, hemoglobin of 11.7, hematocrit of 36.2 and platelet count of 415, total bilirubin 1.0, AST 97, ALT 167 alk phos 153. The next day liver function test increased AST 179, ALT 217, alk phos 203. CRP was
greater than 270, ESR 103. White count also increased to 20.9. Ultrasound of the abdomen was negative. Doppler exam was also negative. LFTs decreased some the following day total bilirubin 0.5, AST 93, ALT 203 and alk phos 208. Repeat today
shows total bilirubin 0.3, AST 156, ALT 244, alk phos 168. CRP 181.5 the patient did have a CT of the abdomen and pelvis with IV contrast (she was prepped with steroids and Benadryl prior) this showed right pyelonephritis. Tiny hypoattenuating
hepatic foci too small to accurately characterize, likely cysts. Urine culture is positive for E. coli. She was started on ceftriaxone on 12/08/2024. Blood cultures x 2 have been negative. Patient denies any current fever, Tmax 100.7 on
12/06/2024. No further nausea, she is tolerating a diet although has poor appetite. Denies any abdominal pain, melena, hematochezia, dysphagia or odynophasia. No unintentional weight loss. Denies any acholic stools or bilirubinuria. Other than
the Shingrix vaccine no new medications. She took ibuprofen a couple times. She took Tylenol once. No other sick contacts. No recent travel. No spoiled food. Denies any tattoos, piercings, IV drug use or blood transfusions. She has been
vaccinated against hepatitis B.
Past Medical History
Past Medical History: Other (Migraines, GERD, depression)
Past Surgical History: Other (, wisdom teeth)
Social History
Tobacco: Non-Smoker
Alcohol: Occasional (2-3 week)
Drug: None
Personal:
Living: With Family
Employment: Employed
Family History
Family History: Other (Grandfather (maternal) gastric cancer. No family history of inflammatory bowel disease, liver disorders. Mother with history of CLL. Denies any family history of autoimmune disorders that she is aware of)
Allergies / Home Medications
Allergy/AdvReac Type Severity Reaction Status Date / Time
Iodinated Contrast Media Allergy Severe Hives Verified 12/07/24 12:55
�Medication �Instructions �Recorded
norethindrone (contraceptive) 0.35 0.35 mg PO DAILY 12/06/24
mg tablet
omeprazole 20 mg capsule,delayed 20 mg PO DAILY 12/06/24
release
sertraline 50 mg tablet 50 mg PO DAILY 12/06/24
Review of Systems
-
All other systems: A 12 pt ROS was Negative except as stated above in HPI
Vital Signs
Temp Pulse Resp BP Pulse Ox
97.8 F 86 18 129/82 95
12/09/24 07:57 12/09/24 07:57 12/09/24 07:57 12/09/24 07:57 12/09/24 08:00
Physical Exam
Exam
General: No Apparent Distress
HEENT: Anicteric
Respiratory: Clear
Cardiac: Regular Rhythm
GI: Soft, Non Tender, Non Distended and Normal Bowel Sounds
Musculoskeletal: No Edema
Skin: Warm and Dry
Neuro: AO x 3
Psych: Calm
Results
WBC Cancelled 12/09/24 14:00
Hgb Cancelled 12/09/24 14:00
Hct Cancelled 12/09/24 14:00
MCV Cancelled 12/09/24 14:00
Plt Count Cancelled 12/09/24 14:00
Absolute Neuts (auto) Cancelled 12/09/24 14:00
Sodium 141 mmol/L (135-145) 12/09/24 06:59
Potassium 4.0 mmol/L (3.5-5.1) 12/09/24 06:59
Chloride 111 mmol/L (98-107) H 12/09/24 06:59
Carbon Dioxide 23 mmol/L (22-30) 12/09/24 06:59
BUN 22 mg/dl (7-17) H 12/09/24 06:59
Creatinine 0.8 mg/dL (0.6-1.0) 12/09/24 06:59
Calcium 8.7 mg/dl (8.4-10.2) 12/09/24 06:59
Total Bilirubin 0.3 mg/dl (0.2-1.3) 12/09/24 06:59
AST 156 U/L (14-36) H 12/09/24 06:59
ALT 244 U/L (0-35) H 12/09/24 06:59
Alkaline Phosphatase 168 U/L (38-126) H 12/09/24 06:59
Lipase 60 U/L (23-300) 12/06/24 12:46
Hepatitis A IgM Ab Cancelled 12/06/24 18:15
Hepatitis A Ab Total Negative (Negative) 12/06/24 18:15
Hep Bs Antibody Positive 12/06/24 18:15
Hep B Core Total Ab Negative (Negative) 12/06/24 18:15
Hep B Core IgM Ab Cancelled 12/06/24 18:15
Hepatitis C Antibody Negative (Negative) 12/06/24 18:15
Diagnostic Image Results:
CT Abd/Pelvis with IV contrast:
IMPRESSION:
1. Findings suggesting right pyelonephritis in the appropriate clinical context.
2. Recommend follow-up imaging after treatment to rule out underlying renal lesions.
US Abd:
IMPRESSION:
1. No sonographic evidence for cholelithiasis, acute cholecystitis, or biliary obstruction.
2. No sonographic evidence for ascites.
Prior GI Procedures:
EGD: Never
Colonoscopy: 'cologuard negative'
Assessment / Plan
-
49-year-old female with past medical histories of migraines, GERD, depression presents to the emergency room with fevers, chills, body aches, headache, malaise and poor appetite associated with low back pain since 11/30/2024. Asked to evaluate for
elevated LFTs. Symptoms occurred 2 days after bug bite, also Shingrix vaccine. Patient also found to have Ecoli UTI with right pyelonephritis.She was found to have a WBC count of 15.4, hemoglobin of 11.7, hematocrit of 36.2 and platelet count of
415, total bilirubin 1.0, AST 97, ALT 167 alk phos 153. The next day liver function test increased AST 179, ALT 217, alk phos 203. CRP was greater than 270, ESR 103. White count also increased to 20.9. Ultrasound of the abdomen was negative.
Doppler exam was also negative. LFTs decreased some the following day total bilirubin 0.5, AST 93, ALT 203 and alk phos 208. Repeat today shows total bilirubin 0.3, AST 156, ALT 244, alk phos 168. CRP 181.5 the patient did have a CT of the
abdomen and pelvis with IV contrast (she was prepped with steroids and Benadryl prior) this showed right pyelonephritis. Tiny hypoattenuating hepatic foci too small to accurately characterize, likely cysts. Urine culture is positive for E. coli.
She was started on ceftriaxone on 12/08/2024. Blood cultures x 2 have been negative.
Impression:
Elevated LFTs (AST/ALT/Alk Phos)
--> No known prior history of elevated LFTs in the past
-->Imaging of the liver appears normal.
--> Shingrix and vaccines have been associated with triggering autoimmune hepatitis
--> Patient also with E. coli UTI with likely right-sided pyelonephritis
--> Viral Hepatitis panel negative, iron studies, CK WNL.
--> Lyme and Monospot negative
--> Ceftriaxone started on 12/08
PLAN:
-Check ANKIT, ASMA, anti-LK M1 antibody, anti-SLA, IgG,
-Repeat CBC, LFTs, BMP, INR
-ID consult pending
-Further recommendations to be
-
-
Thank you for consultation and allowing me to participate in the patient's care. Please call the long term care phlebotomist GI physician during the after hours with any questions or concerns.
[2024-12-09 12:58] LABS: Hematocrit 32.5 % (37.0-47.0); Hemoglobin 10.5 g/dL (12.0-16.0); Mean Corp Hgb Conc. 32.3 g/dL (33.0-37.0); Mean Corpuscular Volume 81.9 fL (81.0-99.0); Nucleated Red Blood Cells % 0 %; Platelet Count 643 10^3/uL (130-400); Red Cell Dist. Width 16.0 % (11.5-14.5)
[2024-12-09 15:47] VITALS: BP 156/93
--- NOTE | 2024-12-09 16:03 | CON.ID ---
Consultation
-
Date/Time Consultation Requested: 12/09/24 11:09
Date/Time Consultation Performed: 12/09/24 16:10
Requesting Provider: Dr Wang
Performing Provider: Dr Draper
Reason for Consultation: transaminitis
Chief Complaint / Past History
Chief Complaint
fever myalgias
History of Present Illness
Ms Truong is a 49 year old female who presented here last night for fevers, chills, myalgias, headache, low back pain since 11/30/24. Denies dysuria although she noted some urgency that she attributed to pushing fluids. Previously in good health
and no history of LFT elevation, drinks 2 or 3 alcoholic beverages a week. Only medications are Prilosec and Zoloft. She did receive the Shingrix vaccine on 11/27/2024 in the left arm. She also did have a bug bite in her right forearm (she did
not see the bug) states this was itchy and she applied hydrocortisone and Neosporin to the area with resolution of symptoms. No other insect or tick bites that she can recall. Then 11/30/2024 she could not sleep, developing aches and pains with
headache. She took ibuprofen for this and felt unwell while at work on 12/01/2024. She had progressive symptoms that lasted. She had decreased appetite. [facility] There she was found to be febrile at 100.7
degrees. She was negative for COVID and flu. She was having low back pain. She was referred to the emergency room for further evaluation.
In the ER her T was initially 100.7, WBC count of 15.4, hemoglobin of 11.7, hematocrit of 36.2 and platelet count of 415, total bilirubin 1.0, AST 97, ALT 167 alk phos 153. UA without initial pyuria then on repeat x2 with pyuria. The next day liver
function test increased AST 179, ALT 217, alk phos 203. CRP was greater than 270, ESR 103. White count also increased to 20.9. Ultrasound of the abdomen was negative. Doppler exam was also negative. Patient reports since she was started on
ceftriaxone all symptoms have resolved. LFTs decreased some the following day total bilirubin 0.5, AST 93, ALT 203 and alk phos 208. Repeat shows total bilirubin 0.3, AST 156, ALT 244, alk phos 168. CRP 181.5 the patient did have a CT of the
abdomen and pelvis with IV contrast this showed right pyelonephritis. Tiny hypoattenuating hepatic foci too small to accurately characterize, likely cysts. Urine culture is positive for E. coli 80K and 50K on the second culture. She was started
on ceftriaxone on 12/06/2024. Blood cultures x 2 have been negative. Patient denies any current fever, No further nausea, she is tolerating a diet although has poor appetite. Denies any abdominal pain. Denies any acholic stools or bilirubinuria.
No new medications beyond ibuprofen and tylenol (once). No other sick contacts. No recent travel. No spoiled food. Denies any tattoos, piercings, IV drug use or blood transfusions. She has been vaccinated against hepatitis B.
Past History
Additional Past Medical History:
migraines, anxiety/depression
Past Surgical History: None
Allergy History:
Iodinated Contrast Media Allergy (Severe, Verified 12/07/24 12:55)
Hives
Medications Reviewed: Yes
Social History
Tobacco: Non-Smoker
Alcohol: Occasional
Drug: None
Family History
Family History: Not Pertinent
Review of Systems
Review of Systems
see HPI
Vital Signs
Temp Pulse Resp BP Pulse Ox
98.2 F 88 18 156/93 98
12/09/24 15:47 12/09/24 15:47 12/09/24 15:47 12/09/24 15:47 12/09/24 15:47
Physical Exam
Physical Exam
Constitutional: No Acute Distress and Comfortable
Cardiovascular: Regular Rate and S1/S2; Negative Murmur or Rub
Pulmonary: Clear and Symmetric; Negative Wheezes, Rales or Rhonchi
Gastrointestinal: Soft, Non Tender, Non Distended and Normal Bowel Sounds
Genito-Urinary: Negative Suprapubic Tenderness or CVA Tenderness
Skin: Warm and Dry; Negative Rash or Jaundice
Lab / Diagnostic Study Results
12/09/24 14:00
12/09/24 06:59
Abs Immat Gran (auto) Cancelled 12/09/24 14:00
Absolute Neuts (auto) Cancelled 12/09/24 14:00
Absolute Lymphs (auto) Cancelled 12/09/24 14:00
Absolute Monos (auto) Cancelled 12/09/24 14:00
Absolute Basos (auto) Cancelled 12/09/24 14:00
Immature Gran % Cancelled 12/09/24 14:00
Neutrophils % Cancelled 12/09/24 14:00
Lymphocytes % Cancelled 12/09/24 14:00
Monocytes % Cancelled 12/09/24 14:00
Eosinophils % Cancelled 12/09/24 14:00
Basophils % Cancelled 12/09/24 14:00
ESR 103 mm/hour (0-20) H 12/07/24 07:47
Lactic Acid 0.7 mmol/L (0.7-2.0) 12/06/24 12:46
C-Reactive Protein 181.50 mg/L (0.0-10.00) H 12/09/24 06:59
Ur Squamous Epith Cells 0-2 /LPF (Few) 12/07/24 09:33
Microbiology Results
Micro:
12/06/24 12:46 Blood Culture - Preliminary
Blood/Venous No Growth in 72 hours- Final report to follow
12/06/24 16:28 Blood Culture - Preliminary
Blood/Venous No Growth in 48 hours- Final report to follow
12/07/24 09:33 Urine Culture - Final
Urine NO GROWTH
12/06/24 17:21 Urine Culture - Final
Urine Escherichia coli
12/06/24 12:36 Urine Culture - Final
Urine Escherichia coli
12/06/24 18:15 Influenza Types A & B (JOSUE) - Final
Nasal Swab Negative for Influenza A & B, NAAT
Negative results must be combined with clinical observations
and patient history.
Nucleic Acid Amplification test (NAAT)performed on the
[employer] NOW platform.
Assessment / Plan
Pyelonephritis due to E coli
- Stop ceftriaxone start ciprofloxacin 500 mg PO BID x 7 days 12/06-12/12
Elevated LFTs
- liver normal on CT
- liver US with patent portal and hepatic veins
- no previous liver disease, no new meds
- spoke with [facility] ID Dr Cadet at patient request: anaplasmosis on the differential - send PCR and start empiric two week course of doxycycline 100 mg PO BID
[2024-12-09] MEDS: LOVENOX SC (17:32)
[2024-12-09] MEDS: VIBRAMYCIN 100 MG PO (20:12)
[2024-12-09] MEDS: CIPRO 500 MG PO (20:12)
[2024-12-09] MEDS: ZOLOFT 50 MG PO (21:57)
[2024-12-09 23:24] VITALS: BP 136/81
[2024-12-10] MEDS: MOTRIN 400 MG PO ×2 (00:36→07:48)
[2024-12-10 07:00] VITALS: BP 151/92
[2024-12-10] MEDS: CIPRO 500 MG PO (07:48)
[2024-12-10] MEDS: VIBRAMYCIN 100 MG PO (07:48)
[2024-12-10] MEDS: PROTONIX 40 MG PO (07:49)
[2024-12-10 08:23] LABS: Hematocrit 31.5 % (37.0-47.0); Hemoglobin 9.8 g/dL (12.0-16.0); Mean Corp Hgb Conc. 31.1 g/dL (33.0-37.0); Mean Corpuscular Volume 85.4 fL (81.0-99.0); Nucleated Red Blood Cells % 0 %; Platelet Count 603 10^3/uL (130-400); Red Cell Dist. Width 16.4 % (11.5-14.5)
[2024-12-10] MEDS: TYLENOL 500 MG PO (08:24)
[2024-12-10 08:32] LABS: INR 1.18; PT 15.3 Sec (11.4-14.6)
[2024-12-10 09:06] LABS: ALT (SGPT) 287 U/L (0-35); AST (SGOT) 121 U/L (14-36); Albumin 3.3 g/dl (3.5-5.0); Alkaline Phosphatase 159 U/L (38-126); Blood Urea Nitrogen 20 mg/dl (7-17); Calcium 8.6 mg/dl (8.4-10.2); Carbon Dioxide 27 mmol/L (22-30); Chloride 106 mmol/L (98-107); Estimated Creatinine Clearance 82 ml/min; Glucose 86 mg/dl (70-99); Potassium 4.2 mmol/L (3.5-5.1); Sodium 135 mmol/L (135-145); Total Protein 6.6 g/dl (6.3-8.2); eGFR > 60.00
--- NOTE | 2024-12-10 09:35 | W.PN.GI.CBS2 ---
Today's Communication / Plan
-
AST down to 121, ALT up slightly to 287, seems to be plateauing. TB 0.7
Hep A/B/C negative, no GI sx
Suspect abnl LFTs related to ifxn, abx
Would simply trend LFTs, recheck 2 weeks after d/c
OK for d/c from GI standpoint
I told pt to call office if f/u LFTs remain elevated and we can do further work up. Autoimmune labs currently pending
Assessment / Plan
-
49-year-old female with past medical histories of migraines, GERD, depression presents to the emergency room with fevers, chills, body aches, headache, malaise and poor appetite associated with low back pain since 11/30/2024. Asked to evaluate for
elevated LFTs. Symptoms occurred 2 days after bug bite, also Shingrix vaccine. Patient also found to have Ecoli UTI with right pyelonephritis.She was found to have a WBC count of 15.4, hemoglobin of 11.7, hematocrit of 36.2 and platelet count of
415, total bilirubin 1.0, AST 97, ALT 167 alk phos 153. The next day liver function test increased AST 179, ALT 217, alk phos 203. CRP was greater than 270, ESR 103. White count also increased to 20.9. Ultrasound of the abdomen was negative.
Doppler exam was also negative. LFTs decreased some the following day total bilirubin 0.5, AST 93, ALT 203 and alk phos 208. Repeat today shows total bilirubin 0.3, AST 156, ALT 244, alk phos 168. CRP 181.5 the patient did have a CT of the
abdomen and pelvis with IV contrast (she was prepped with steroids and Benadryl prior) this showed right pyelonephritis. Tiny hypoattenuating hepatic foci too small to accurately characterize, likely cysts. Urine culture is positive for E. coli.
She was started on ceftriaxone on 12/08/2024. Blood cultures x 2 have been negative.
Impression:
Pyelonephritis
Abnl LFTs
Subjective
Subjective
Date of Service: December 10, 2024
No complaints. Denies abd pain, f/c.
Objective
Data Reviewed
Laboratory Data:
Laboratory Results
12/10/24 07:49
12/10/24 07:49
Laboratory Results
PT 15.3 Sec (11.4-14.6) H 12/10/24 07:49
INR 1.18 12/10/24 07:49
Total Bilirubin 0.7 mg/dl (0.2-1.3) 12/10/24 07:49
AST 121 U/L (14-36) H 12/10/24 07:49
ALT 287 U/L (0-35) H 12/10/24 07:49
Alkaline Phosphatase 159 U/L (38-126) H 12/10/24 07:49
Lipase 60 U/L (23-300) 12/06/24 12:46
Vital Signs and I&O:
Vital Signs
Temp Pulse Resp BP Pulse Ox
98 F 89 12 151/92 97
12/10/24 07:00 12/10/24 07:00 12/10/24 07:00 12/10/24 07:00 12/10/24 07:00
I&O
12/09/24 12/10/24 12/11/24
06:59 06:59 06:59
Intake Total 1200 / 1200 1800 / 1800 480 / 480
Balance 1200 / 1200 1800 / 1800 480 / 480
Physical Exam
Physical Exam
GI: Soft, Non Distended and Non Tender
--- NOTE | 2024-12-10 12:15 | W.PN.HOSP.TC ---
Today's Communication/Plan
-
Await ID evaluation today for DC plans
Assessment / Plan
Assessment / Plan
49-year-old with fever and body aches started 3 days after receiving shingles vaccine which was 9 days ago. Also has urinary urgency, mild pain at the right side lateral area not posterior or anterior. Denies any rashes, nausea vomiting or
diarrhea abdominal pain, headaches, cough or shortness of breath. No chest pain. No pleurisy
On examination awake alert oriented
Cardiovascular system S1-S2 appreciated
Chest clear to auscultation
Abdomen soft and nontender, no CVA angle tenderness, no rashes
CT abdomen/pelvis-right pyelonephritis in the appropriate clinical context. Extensive patchy peripheral hypoattenuation throughout the right kidney bowel probable superimposed small simple cyst. Cannot rule out complex cystic lesion
# Sepsis likely secondary to UTI, likely pyelonephritis
No Lactic acidosis
COVID serologies negative monoscreen negative, influenza negative
Patient reports that she had a bug bite on her right forearm therefore serologies for Anaplasma ordered by ID
Hepatitis panel negative
Blood cultures negative, urine cultures with E. coli
CT scan of the abdomen pelvis noted
Leukocytosis likely secondary to steroids got for the Allergy dye prep-resolved
Antibiotics changed to ciprofloxacin and doxycycline
# Transaminitis
Hepatitis serologies negative
Ultrasound of the abdomen-no evidence of cholelithiasis, acute cholecystitis or biliary obstruction. No evidence of ascites
CT scan of the abdomen and pelvis-liver and gallbladder normal
LFTs are still slightly high
Autoimmune hepatitis serologies added-pending
Discussed with the patient that she will need outpatient follow-up with GI
I will send a text to GI outpatient To schedule an appointment
# Hypokalemia-replaced
# Mild hyponatremia-resolved
# Thrombocytosis-Follow. Patient aware that she will need to continue to follow this up as outpatient
# Chronic anemia
# Anxiety-continue sertraline
# History of migraine
# GERD-continue PPI
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
# DVT prophylaxis-Lovenox
# Full code
Discussed with the patient that we still do not have a diagnosis for her anemia, thrombocytosis, LFT elevation.
Treat for UTI
Anaplasma serologies pending
Patient aware that even though she is being discharged she will need continued follow-up to get the results of this test through her PCP or GI and also get further testing until the labs normalize.
Wait for infectious disease to see the patient today and if okay we will discharge her for further workup as outpatient
Part of this note was created using voice recognition system. Occasional wrong word or��sound alike� substitutions may have inadvertently occurred due to the inherent limitations of voice recognition software. If noted kindly bring it to my
attention for correction.
Anticipated Discharge: Within 24 hours
Subjective/Interval History
-
Date of Service: December 10, 2024
Objective Data
-
Labs:
Laboratory Results
12/10/24
07:49
WBC 10.1
Hgb 9.8 L
Hct 31.5 L
Plt Count 603 H
PT 15.3 H
INR 1.18
Sodium 135
Potassium 4.2
Chloride 106
Carbon Dioxide 27
BUN 20 H
Creatinine 0.6
Glucose 86
Calcium 8.6
Total Bilirubin 0.7
AST 121 H
ALT 287 H
Alkaline Phosphatase 159 H
Vital Signs:
Vital Signs
Temp Pulse Resp BP Pulse Ox
98 F 89 12 151/92 97
12/10/24 07:00 12/10/24 07:00 12/10/24 07:00 12/10/24 07:00 12/10/24 07:00
I&O
12/09/24 12/10/24 12/11/24
06:59 06:59 06:59
Intake Total 1200 / 1200 1800 / 1800 720 / 720
Balance 1200 / 1200 1800 / 1800 720 / 720
--- NOTE | 2024-12-10 13:06 | W.PN.ID1 ---
Date of Service
Date of Service: December 10, 2024
Today's Communication
- start empiric two week course of doxycycline 100 mg PO BID this will cover both the UTI and possible anaplasmosis
Assessment / Plan
Pyelonephritis due to E coli
Elevated LFTs
- liver normal on CT
- liver US with patent portal and hepatic veins
- no previous liver disease, no new meds
- spoke with [facility] ID Dr Cadet 12/09 at patient request: anaplasmosis on the differential - PCR sent
- start empiric two week course of doxycycline 100 mg PO BID this will cover both the UTI and possible anaplasmosis
Subjective / Review of Systems
afebrile
bp stable
feels well no complaints
Vital Signs / Physical Exam
Vital Signs
Vital Signs
Temp Pulse Resp BP Pulse Ox
98 F 89 12 151/92 97
12/10/24 07:00 12/10/24 07:00 12/10/24 07:00 12/10/24 07:00 12/10/24 07:00
Physical Exam
Constitutional: No Acute Distress
Cardiovascular: Regular Rate and S1/S2; Negative Murmur or Rub
Pulmonary: Clear and Symmetric; Negative Wheezes or Rales
Gastrointestinal: Soft, Non Tender, Non Distended and Normal Bowel Sounds
Genito-Urinary: Negative Suprapubic Tenderness or CVA Tenderness
Skin: Warm and Dry; Negative Rash or Jaundice
Objective Data
Lab Data
Lab Results
12/10/24 07:49
12/10/24 07:49
ESR 103 mm/hour (0-20) H 12/07/24 07:47
PT 15.3 Sec (11.4-14.6) H 12/10/24 07:49
INR 1.18 12/10/24 07:49
Estimated Creat Clear 82 ml/min 12/10/24 07:49
Lactic Acid 0.7 mmol/L (0.7-2.0) 12/06/24 12:46
Total Bilirubin 0.7 mg/dl (0.2-1.3) 12/10/24 07:49
AST 121 U/L (14-36) H 12/10/24 07:49
ALT 287 U/L (0-35) H 12/10/24 07:49
Alkaline Phosphatase 159 U/L (38-126) H 12/10/24 07:49
C-Reactive Protein 181.50 mg/L (0.0-10.00) H 12/09/24 06:59
Most recent labs reviewed.
Micro Results:
12/06/24 12:46 Blood Culture - Preliminary
Blood/Venous No Growth in 4 days- Final report to follow
12/06/24 16:28 Blood Culture - Preliminary
Blood/Venous No Growth in 72 hours- Final report to follow
12/07/24 09:33 Urine Culture - Final
Urine NO GROWTH
12/06/24 17:21 Urine Culture - Final
Urine Escherichia coli
12/06/24 12:36 Urine Culture - Final
Urine Escherichia coli
12/06/24 18:15 Influenza Types A & B (JOSUE) - Final
Nasal Swab Negative for Influenza A & B, NAAT
Negative results must be combined with clinical observations
and patient history.
Nucleic Acid Amplification test (NAAT)performed on the
[employer] platform.
Care Review
Plan reviewed with: Physician (Dr Darling - antibiotics)
--- NOTE | 2024-12-10 13:56 | W.DS.TRANS ---
DC Summary - Dental Therapist
-
Discharge Instructions:
Discharge Diagnosis/Procedures Sepsis secondary to pyelonephritis
Elevated liver function test
Anemia
Thrombocytosis
Low potassium
Anxiety
History of migraine
GERD
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
spine with adjacent discogenic degenerative
disease.
Diet As tolerated
Activity As tolerated
Driving Restrictions As prior to admission
Instructions:
Stand-Alone Forms:
Changes to Home Medications: Yes
Discharge Medications:
DC Medications w/original date entered in [employer]
doxycycline hyclate 100 mg capsule 100 mg PO Q12 Infection #28 caps 12/10/24
norethindrone (contraceptive) 0.35 mg tablet 0.35 mg PO DAILY Hormonal agent #0 tabs 12/10/24
omeprazole 20 mg capsule,delayed release 20 mg PO DAILY Gastrointestinal issue #0 caps 12/10/24
polyethylene glycol 3350 17 gram oral powder packet 17 g PO DAILYPRN PRN constipation #0 ea 12/10/24
sertraline 50 mg tablet 50 mg PO DAILY Mental Health/Anxiety #0 tabs 12/10/24
Home Medication Changes
MiraLAX and doxycycline are new
Pending Results: Yes
Additional Pending Results:
Ehrlichiosis serology, autoimmune hepatitis panel, complement levels pending
--- NOTE | 2024-12-10 15:32 | CM ---
Patient has been medically cleared for discharge to home with PO antibiotics and no additional skilled services. Patient arranged for transport home.
--- NOTE | 2024-12-10 20:00 | W.DCSUMMARY ---
Discharge Summary
Discharge Data
Date of Admission: 12/06/24
Date of Discharge: 12/10/24
Total time spent discharging patient (in min): 45
-
Pending Results: Yes
Additional Pending Results:
Ehrlichiosis Serology
Autoimmune Hepatitis Panel
Complement Levels
Hospital Course
Mirela Truong is a 49 year old female with a past medical history of migraines, generalized anxiety disorder, major depressive disorder, recurrent urinary tract infections who presented to the emergency department at [facility] on
12/06/2024 with 6 days of rigors, fevers, chills, and myalgias.
HISTORY OF PRESENT ILLNESS
Patient endorsed receiving a shingles vaccine 9 days prior to presentation (3 days prior to onset of symptoms), though seemingly this was unrelated. Associated symptoms of the rigors, fevers and chills included occasional headaches and decreased
appetite. Of note, patient also endorsed a history of a bug bite to the right forearm that coincided with the onset of symptoms but that resolved quickly. She was unable to take her temperature at home and denied a specific pattern of fevers.
Patient was taking Tylenol which had not helped. Prior to presentation, patient went to a urgent care center where she was noted to have a fever of 100.7 and an elevated white count. She was sent to the emergency department for further evaluation.
ED COURSE
Upon presentation, patient was tachypneic, tachycardic, and febrile to a maximum temperature of 100.7.
White blood cell count was 15K, hemoglobin was 11.7 g/dL, potassium was 3.2 and liver function panel showed a transaminitis with elevated alkaline phosphatase.
Patient's urinalysis was indicative of urinary tract infection.
Patient was admitted for intravenous antibiotics in the setting of sepsis secondary to urinary tract infection.
HOSPITAL COURSE
Patient was initially started on intravenous ceftriaxone at a dose of 1g daily. However, subsequent CT scan of the abdomen pelvis showed signs concerning for pyelonephritis. Ceftriaxone was increased to 2 g intravenously daily. Patient remained
afebrile overnight for the coming days. However, after additional improvement, he is complete blood count showed white count going back up to 21.5 K. Infectious disease was consulted for this reason, although by that time, it was realized that this
elevated white count was likely secondary to the steroids that the patient received in preparation of receiving intravenous contrast for the CT scan.
With regards to the patient's pyelonephritis/urinary tract infection, the patient's antibiotics were transitioned to oral doxycycline.
With regards to the patient's transaminitis, LFTs are still slightly elevated on the day of discharge. Viral hepatitis ruled out. Autoimmune hepatitis serologies were pending. An appointment was made with churn drill operator in outpatient setting.
DISCHARGE RECOMMENDATIONS
Follow-up with primary care provider in less than 1 week.
Pending results: Ehrlichiosis serology, autoimmune hepatitis panel, complement levels
CBC and CMP as ordered by your primary care provider
Particularly follow-up anemia, leukocytosis, thrombocytosis, liver function tests
Continue doxycycline as directed.
Abnormalities on CT scan including multiple small cysts and a potentially complex cystic lesion. Consider repeat CT, urology consult.
Follow-up with the churn drill operator for evaluation of elevated liver enzymes (Dr. Jace Hand)
Discharge Plan
-
Patient Disposition: Home (Routine Discharge)
Discharge Diagnosis/Procedures: Sepsis secondary to pyelonephritis
Elevated liver function test
Anemia
Thrombocytosis
Low potassium
Anxiety
History of migraine
GERD
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
Condition: Good
Diet: As tolerated
Activity: As tolerated
Driving Restrictions: As prior to admission
Activity Restrictions/Additional Instructions:
You have some abnormalities on CAT Scan and should be evaluated by a urologist. May need repeat CAT scan as outpatient
Follow-up with GI for liver function test abnormalities
Repeat CBC and CMP in the week as outpatient -prescription from your primary physician
Follow-up with a inspector glass or mirror for anemia and thrombocytosis
Labs pending at discharge-Ehrlichia, autoimmune lab test for the liver, complement levels
Doxycycline Precautions
�� Take with at least 6 oz water.
�� Take with food but no calcium containing products like milk or cheese
�� Ideally you would not take any multivitamins, calcium, magnesium or zinc containing products.
�� If you must take one of these products make sure that the pills are by at least 3 hours.
�� Sit up for at least 30 minutes after each dose to prevent heartburn.
�� Your skin will be more sensitive to the sun while you are on doxycycline - it will be very easy for you to get a sunburn.
Referrals:
Jace Hand MD [Active, Gastroenterology]
Gretchen Juan CRNP [Family Provider, General] - in less than 1 week
Prescriptions:
New
doxycycline hyclate 100 mg Capsule
100 mg PO Q12 Qty: 28 0RF
polyethylene glycol 3350 17 gram Powder In Packet
17 g PO DAILYPRN PRN (Reason: constipation) Qty: 0 0RF
Continued
omeprazole 20 mg Capsule,Delayed Release(Dr/Ec)
20 mg PO DAILY Qty: 0 0RF
norethindrone (contraceptive) 0.35 mg Tablet
0.35 mg PO DAILY Qty: 0 0RF
sertraline 50 mg Tablet
50 mg PO DAILY Qty: 0 0RF
Discharge Orders:
Discharge Patient (As Directed); Ordered 12/10/24
Ordered By: Marcus Darling
Discharge Date and Time
Discharge Date/Time: 12/10/24 14:40
Print Language: SOMALI
[2024-12-13 02:24] LABS: ANA, IgG Reflex to HEp-2 None Detected (None Detected)
[2024-12-13 19:16] LABS: LKM-1 Ab (IgG) 1.4 U (0.0-24.9); Soluble Liver Antigen Ab 2.3 U (0.0-24.9)
== END 2024-12-10 14:40 | disposition home or self-care (01) ==
LOC: 1 ACUTE 18:17
PROVIDERS: Nurse Practitioner; Nurse Practitioner Family; Physician Assistant; Student in an Organized Health Care Education/Training Program; ADMITTING PHYSICIAN Hospitalist; ATTENDING PHYSICIAN Hospitalist; CONSULT PHYSICIAN Specialist; CONSULT PHYSICIAN Student in an Organized Health Care Education/Training Program; EMERGENCY PHYSICIAN Emergency Medicine; FAMILY PHYSICIAN Nurse Practitioner Adult Health
DX: A41.9 Sepsis, unspecified organism (principal); N12 Tubulo-interstitial nephritis, not specified as acute or chronic; R65.10 Systemic inflammatory response syndrome (SIRS) of non-infectious origin without acute organ dysfunction; E87.6 Hypokalemia; D64.9 Anemia, unspecified; K21.9 Gastro-esophageal reflux disease without esophagitis; Z79.899 Other long term (current) drug therapy; Z11.52 Encounter for screening for COVID-19; R79.89 Other specified abnormal findings of blood chemistry; D75.839 Thrombocytosis, unspecified; G43.909 Migraine, unspecified, not intractable, without status migrainosus; B96.20 Unspecified Escherichia coli [E. coli] as the cause of diseases classified elsewhere; S50.861A Insect bite (nonvenomous) of right forearm, initial encounter; W57.XXXA Bitten or stung by nonvenomous insect and other nonvenomous arthropods, initial encounter; E87.1 Hypo-osmolality and hyponatremia
CPT/HCPCS: 71046; 74177; 76700; 80053; 81003; 81015; 82248; 82550; 82728; 82784; 83516; 83540; 83550; 83605; 83690; 85025; 85610; 85652; 86015; 86038; 86140; 86160; 86256; 86308; 86376; 86618; 86704; 86705; 86706; 86708; 86709; 86803; 87040; 87077; 87086; 87186; 87340; 87468; 87484; 87502; 87798; 87811; 90656; 96360; 99284; G0008; G0378; Q9967